=== PATIENT | male | born 1940 | race Caucasian/White ===

== ENCOUNTER 2019-04-02 15:28 | Emergency (ER) | payer MEDICARE, OTHER ==
[~2019-04-02] VITALS: Ht 170.2 cm; Wt 54.4 kg
[2019-04-02 15:54] LABS: BASOPHILS # (AUTO) 0.1 K/uL (0.0-8.0); BASOPHILS % (AUTO) 1.1 % (0.0-2.0); EOSINOPHILS # (AUTO) 0.2 K/uL (0.0-0.7); EOSINOPHILS % (AUTO) 2.7 % (0.0-7.0); HEMOGLOBIN 12.3 g/dL (12.5-16.3); LYMPHOCYTES # (AUTO) 1.8 K/uL (20.0-40.0); LYMPHOCYTES % (AUTO) 22.6 % (20.5-51.5); MEAN CORPUSCULAR HEMOGLOBIN 30.5 uug (23.8-33.4); MEAN CORPUSCULAR HGB CONC 33 g/dL (32.5-36.3); MEAN CORPUSCULAR VOLUME 92.1 fL (73.0-96.2); MONOCYTES # (AUTO) 0.9 K/uL (2.0-10.0); MONOCYTES % (AUTO) 11.4 % (0.0-11.0); NEUTROPHILS # (AUTO) 4.9 K/uL (1.8-8.9); NEUTROPHILS % (AUTO) 62.2 % (38.5-71.5); PLATELET COUNT (AUTO) 277 K/uL (152-348); RED BLOOD CELL COUNT(AUTO) 4.02 MIL/uL (4.06-5.63); WHITE BLOOD COUNT (AUTO) 7.9 K/uL (3.6-10.2)
--- NOTE | 2019-04-02 15:55 | NUR ---
Hands off report given to MARISSA Ribeiro.
[2019-04-02 16:03] LABS: CARBON DIOXIDE 28 mmol/L (21-32); CHLORIDE 105 mmol/L (98-107); GLUCOSE 99 mg/dL (74-106); POTASSIUM 4.2 mmol/L (3.5-5.1); UREA NITROGEN, BLOOD 19 mg/dL (7-18)
[2019-04-02 16:08] LABS: ALANINE AMINOTRANSFERASE 16 U/L (16-63); ALKALINE PHOSPHATASE 73 U/L (50-136); ASPARTATE AMINOTRANSFERASE 19 U/L (15-37); BILIRUBIN,DIRECT 0.2 mg/dL (0.0-0.2); BILIRUBIN,TOTAL 0.5 mg/dL (0.2-1.0); ETHANOL < 3 MG/DL (0-0); TOTAL PROTEIN, SERUM 7.3 g/dL (6.4-8.2)
[2019-04-02 16:09] LABS: ACETAMINOPHEN < 2.0 ug/mL (10-30)
[2019-04-02] MEDS ORDERED: ZOLP5TAB2 PO (16:29)
[2019-04-02] MEDS ORDERED: MULT-213 PO (16:29)
[2019-04-02] MEDS ORDERED: ASCO250T5 PO (16:29)
[2019-04-02] MEDS ORDERED: SIMV20TA6 PO (16:29)
[2019-04-02] MEDS ORDERED: DOCU-141 PO (16:29)
[2019-04-02] MEDS ORDERED: CHOL10002 PO (16:29)
[2019-04-02] MEDS ORDERED: CYAN10009 PO (16:29)
[2019-04-02] MEDS ORDERED: AMIN30LI2 PO (16:29)
[2019-04-02] MEDS ORDERED: DONE10TA44 PO (16:29)
[2019-04-02] MEDS ORDERED: MEMA10TA PO (16:29)
--- NOTE | 2019-04-02 16:56 | NUR ---
pt smiling. color good. abd soft and non tender and denies pain. pt alert and ambulated out of bed with good balance. pt cooperative and following direction but confused. hx of chronic confusion. d/w as attempted to obtain urine through urinal but pt confused as to what to do and would not void, then attempted in and out cath but ++ resistance at prostate, then attempt to put condom cath on multiple times and pt pulling off ++. unable to obtain urinme
--- NOTE | 2019-04-02 17:46 | NUR ---
PAGED EPIC FOR PANEL CALL. AWAITING CALLBACK. ATTEMPT 1.
--- NOTE | 2019-04-02 18:30 | NUR ---
SPOKE W/ SHER FROM [facility]. TRIP #[id number]. ETA [id number].
--- NOTE | 2019-04-02 18:51 | NUR ---
pt remains friendly.ambulates easilyu. ate crackers and drank a cup of water. report phoned to [facility] to Abby
--- NOTE | 2019-04-02 21:45 | NUR ---
[facility] arrived to ER to transport patient back to [facility]. Report and documentation given to EMT.
--- NOTE | 2019-04-02 22:01 | NUR ---
Pt out of ER via [facility].
[2019-04-02 22:02] VITALS: BP 142/65
== END 2019-04-02 22:02 | disposition home or self-care (01) ==
LOC: ER 15:28
DX: F03.90 Unspecified dementia, unspecified severity, without behavioral disturbance, psychotic disturbance, mood disturbance, and anxiety (principal); R45.1 Restlessness and agitation; E78.5 Hyperlipidemia, unspecified; Z79.899 Other long term (current) drug therapy
CPT/HCPCS: 36415; 80048; 80076; 85025; 85730; 93005; 99284; G0480 ×2; G0481; A4663